=== PATIENT | male | born 1995 | race Caucasian/White ===

== ENCOUNTER 2017-05-21 17:41 | Emergency (ER) | payer SELFPAY | END 2017-05-21 18:42 | disposition home or self-care (01) | PROVIDERS: Emergency Provider Nurse Practitioner; Visit Provider Nurse Practitioner | DX: J32.9 Chronic sinusitis, unspecified (principal); Z87.891 Personal history of nicotine dependence; J45.909 Unspecified asthma, uncomplicated | CPT/HCPCS: 87804; 87880; 99201 ==

== ENCOUNTER 2020-11-04 16:37 | Emergency (ER) | payer BC, SELFPAY ==
[2020-11-04 16:45] VITALS: BP 119/81; PULSE 89; RESP 20; TEMP 36.6; O2SAT 100; BMI 23.7
[2020-11-04 17:05] VITALS: BP 000/00; PULSE 74; RESP 18; TEMP 36.6
--- NOTE | 2020-11-04 17:07 | HMH.EDUTC ---
[facility] [place] Disposition Clinical Impression: Bronchitis Sinusitis Qualifiers: Sinusitis location: unspecified location Chronicity: acute Recurrence: non-recurrent Qualified Code(s): J01.90 - Acute sinusitis, unspecified Disposition: Home, Self-Care Condition on Discharge: Good Instructions: DI for Sinusitis Additional Instructions: Drink plenty of fluids. Take tylenol or ibuprofen for pain or fever. Take the medications as directed. Follow up with your regular doctor. GO TO THE ER FOR ANY WORSENING SYMPTOMS Prescriptions: Pseudoephedrine HCl [Nasal Decongestant] 30 mg PO Q6HP PRN #30 tab PRN Reason: Congestion Transmission Status: Received by [facility] predniSONE [Prednisone 20mg Tab] 20 mg PO BID 4 Days #8 tab Transmission Status: Received by [facility] Benzonatate [Tessalon Perle 100mg Cap] 100 mg PO TIDP PRN #30 cap PRN Reason: Cough Transmission Status: Received by [facility] Azithromycin [Z-Monster 250mg Tab*] 250 mg PO UD DOSE PK #6 tab Transmission Status: Received by [facility] Referrals: Provider,Referral, [Primary Care Provider] - Forms: Work/School Release Time of Disposition: 17:15 Medical Decision Making - Medical Records Medical records reviewed: No: I reviewed the patient's medical records. - Olvin Inquiry Pt receiving controlled substance: No Vital Signs: 11/04/20 16:45 11/04/20 17:05 Temperature 98 F 98 F Temperature Source Oral Pulse Rate 74 Pulse Rate [Right] 89 Respiratory Rate 20 18 Blood Pressure 000/00 L Blood Pressure [Right Arm] 119/81 Blood Pressure Mean [Right Arm] 93 Blood Pressure Source [Right Arm] Automatic Cuff Blood Pressure Position [Right Arm] Sitting 02 Sat by Pulse Oximetry 100 Oxygen Delivery Method Room Air - Lab Data Lab results reviewed: Yes: I reviewed the patient's lab results. [facility] [place] HPI - General Stated complaint: cough,stuffie nose Time Seen by Provider: 11/04/20 17:07 Mode of Arrival: Ambulatory Source of Information: Patient Limitations: No Limitations Description of Symptoms (Recalled from Triage Doc. by RN): pt c/o nasal congestion, soa, and a productive cough with green sputum. HEENT Symptoms (Recalled from RN notes): Yes (nasal congestion) Resp Symptoms (Recalled from RN notes): Yes (soa and productive cough with green sputum) Skin Symptoms (Recalled from RN notes): No MS Symptoms (Recalled from RN notes): No Functional Status (Recalled from RN notes): na - History of Present Illness Provider Complaint: He states that he has had sinus congestion, cough, bilateral ear pain and chills for the past 2 days. He started feeling much worse this morning than he had been feeling. He denies any chest pain and shortness of breath. - Related Data Previous Rx's Medication Instructions Recorded Azithromycin [Z-Monster 250mg Tab*] 250 mg PO UD DOSE PK #6 tab 11/04/20 Benzonatate [Tessalon Perle 100mg 100 mg PO TIDP PRN #30 cap 11/04/20 Cap] Pseudoephedrine HCl [Nasal 30 mg PO Q6HP PRN #30 tab 11/04/20 Decongestant] predniSONE [Prednisone 20mg 20 mg PO BID 4 Days #8 tab 11/04/20 Tab] Allergies Allergy/AdvReac Type Severity Reaction Status Date / Time cimetidine [CIMETIDINE] Allergy Intermediate Verified 11/04/20 17:04 - Worker's Comp Is this a Worker's Comp case?: No [facility] History - Hepatitis A Screen Drug use history?: No High risk sexual behaviors?: No History of sexually transmitted infection?: No Currently employed?: No Childcare worker?: No Do you have indoor plumbing?: Yes Do you have electricity?: Yes Attestation statement:: This patient has been screened for Hepatitis A risk factors. I have reviewed the patient's past medical history: Yes Medical History: Denies:: Diabetes Mellitus Type 1, Diabetes Mellitus Type 2 - Social History Smoking Status: Current every day smoker Tobacco Type: e-cigarettes # Packs/Day (cigarettes): 1 Alcoho
== END 2020-11-04 17:18 | disposition home or self-care (01) ==
PROVIDERS: Emergency Provider Nurse Practitioner Family
DX: J01.90 Acute sinusitis, unspecified (principal); Z20.822 Contact with and (suspected) exposure to COVID-19; F17.290 Nicotine dependence, other tobacco product, uncomplicated
CPT/HCPCS: 99202; G0463; U0003

== ENCOUNTER 2021-01-27 21:48 | Emergency (ER) | payer BC, SELFPAY ==
[2021-01-27 21:49] VITALS: BP 125/85; PULSE 65; RESP 16; TEMP 36.7; O2SAT 100; BMI 23.7
[2021-01-27 23:45] LABS: Basophils # 0.1 K/mm3 (0-0.2); Basophils % 0.8 % (0.1-2.0); Eosinophils # 0.1 K/mm3 (0.0-0.4); Eosinophils % 1.2 % (0.1-12.0); Hematocrit 44.1 % (42.0-52.0); Hemoglobin 14.8 g/dL (14.1-18.0); Lymphocytes # 2.6 K/mm3 (0.7-4.5); Lymphocytes % 37.1 % (10-50); Mean Corpuscular HGB Conc 33.6 g/dL (31.8-35.4); Mean Corpuscular Hemoglobin 31.4 pg (27.0-31.2); Mean Corpuscular Volume 93.5 fl (80-94); Mean Platelet Volume 8.8 fl (7.4-10.4); Monocytes # 0.3 K/mm3 (0.1-1.0); Monocytes % 3.9 % (1.7-9.3); Platelet Count 268 K/mm3 (142-424); Red Blood Count 4.71 M/mm3 (4.60-6.20); Red Cell Distribution Width 12.7 % (11.5-17.5)
[2021-01-27 23:53] LABS: Alanine Aminotransferase 27 U/L (12-78); Albumin/Globulin Ratio 1.8 (1.1-1.8); Alkaline Phosphatase 93 U/L (38-126); Anion Gap 15.1 mEq/L (5-15); Aspartate Amino Transferase 32 U/L (17-59); Bilirubin,Total 0.7 mg/dl (0.2-1.3); Blood Urea Nitrogen 11 mg/dl (9-20); Calcium 9.8 mg/dl (8.4-10.2); Carbon Dioxide 28 mmol/L (22.0-30.0); Chloride 101 mmol/L (98-107); Creatinine Clearance Estimated 181 mL/min (50-200); Estimated Glomerular Filt Rate 137 ml/min (>60); GFR (African American) 166 ML/MIN (>60); Globulin 2.8 g/dL (1.3-3.2); Glucose 98 mg/dl (74-100); Lipase 17 U/L (23-300); Potassium 4.1 mmoL/L (3.5-5.1); Sodium 140 mmol/L (136-145); Total Protein,Serum 7.8 g/dl (6.3-8.2)
--- NOTE | 2021-01-28 01:59 | HMH.EDGENADL ---
ED Disposition Clinical Impression: Gastroenteritis Disposition: Home, Self-Care Condition on Discharge: Fair Prescriptions: Famotidine [Acid Controller] 20 mg PO DAILY 30 Days #30 tab Transmission Status: Received by [facility] Referrals: Provider,MD Gus [Primary Care Provider] - Robinson Baez MD [Staff Physician] - Time of Disposition: 02:01 - Critical Care Critical Care Time: No Attestation: On 01/27/21, the high probability of a clinically significant, sudden or life threatening deterioration of the following system(s) required my full and direct attention, intervention and personal management. The time I documented below is in addition to time spent performing reported procedures but includes the following listed in this critical care notation. Medical Decision Making - Medical Records Medical records reviewed: Yes: I reviewed the patient's medical records. - Olvin Inquiry Pt receiving controlled substance: No Vital Signs: 01/27/21 21:49 Temperature 98.0 F Temperature Source Oral Pulse Rate [Right Radial] 65 Respiratory Rate 16 Blood Pressure [Right Arm] 125/85 Blood Pressure Mean [Right Arm] 98 Blood Pressure Source [Right Arm] Automatic Cuff Blood Pressure Position [Right Arm] Sitting 02 Sat by Pulse Oximetry 100 Oxygen Delivery Method Room Air - Lab Data Lab Results 01/27/21 23:38: WBC 7.0, RBC 4.71, Hgb 14.8, Hct 44.1, MCV 93.5, MCH 31.4 H, MCHC 33.6, RDW 12.7, Plt Count 268, MPV 8.8, Neut % (Auto) 57.0, Lymph % (Auto) 37.1, O'Brien % (Auto) 3.9, Eos % (Auto) 1.2, Baso % (Auto) 0.8, Neut # (Auto) 4.0, Lymph # (Auto) 2.6, O'Brien # (Auto) 0.3, Eos # (Auto) 0.1, Baso # (Auto) 0.1 01/27/21 23:38: Sodium 140, Potassium 4.1, Chloride 101, Carbon Dioxide 28, Anion Gap 15.1 H, BUN 11, Creatinine 0.70, Estimated Creat Clear 181, Estimated GFR 137, Est GFR ( Amer) 166, Glucose 98, Calcium 9.8, Total Bilirubin 0.7, AST 32, ALT 27, Alkaline Phosphatase 93, Total Protein 7.8, Albumin 5.0, Globulin 2.8, Albumin/Globulin Ratio 1.8, Lipase 17 L Result diagrams: 01/27/21 23:38 01/27/21 23:38 Orders (Tests/Meds): ED MEDICATIONS Discontinued Medications Generic Name Dose Route Start Last Admin Trade Name Daniela PRN Reason Stop Dose Admin Belladonna Alkaloids 60 ml 01/28/21 00:01 01/28/21 00:05 Gi Cocktail 60ml Udc PO 01/28/21 00:02 60 ml ONCE ONE Administration Medical Decision Narrative: 25-year-old male presenting to the emergency department with chief complaint of abdominal pain. Differential diagnosis includes gastritis, cholelithiasis, cholecystitis, pancreatitis, among others. Given a CBC, CMP, lipase were ordered. Patient was given a GI cocktail with minimal relief of symptoms. Patient was hemodynamically stable throughout the emergency department stay, physical exam was not consistent with these etiology, nor were labs concerning for elevated bilirubin, acute liver injury, or pancreatitis. Reassessment patient was still having some discomfort, stated that the GI cocktail had provided alleviation but it only lasted for about half an hour. Patient was given Toradol and Reglan for the alleviation of his symptoms. He is given referral to primary care doctor as he does not have one instructed to take famotidine in the interim. Precautions regarding worsening of pain, new symptoms were also given. Patient discharged in stable condition. General Adult HPI - General Chief complaint: Abdominal Pain Stated complaint: burning in stomach Time Seen by Provider: 01/27/21 22:30 Mode of Arrival: Ambulatory Limitations: No Limitations Description of Symptoms (Recalled from ER Triage Doc. by RN): Pt reports intermittent burning in his mid abdomen for over a year but it has been constant since 5pm. pt denies fevers. Denies abd pain. Denies N/V/D. - History of Present Illness HPI narrative: Emergency department with burning pain in his stomach. He sta
[2021-01-28 02:00] VITALS: BP 116/82; PULSE 83; RESP 16; TEMP 36.7; O2SAT 99
== END 2021-01-28 02:08 | disposition home or self-care (01) ==
PROVIDERS: Emergency Provider Emergency Medicine
DX: K52.9 Noninfective gastroenteritis and colitis, unspecified (principal); Z88.8 Allergy status to other drugs, medicaments and biological substances; Z72.0 Tobacco use
CPT/HCPCS: 80053; 83690; 85025; 99282

== ENCOUNTER 2021-02-25 17:40 | Emergency (ER) | payer BC, SELFPAY ==
[2021-02-25 19:00] VITALS: BP 147/80; PULSE 81; RESP 18; TEMP 36.8; O2SAT 100; BMI 23.7
[2021-02-25 19:26] LABS: UTC Strep Screen (Rapid) Positive (Negative)
--- NOTE | 2021-02-25 19:32 | HMH.EDUTC ---
[facility] [place] Clinical Impression: Strep throat Disposition: Home, Self-Care Condition on Discharge: Good Instructions: Strep Throat, DI for Strep Throat Additional Instructions: Drink plenty of fluids. Take tylenol or ibuprofen for pain or fever. Take the medications as directed. Follow up with your regular doctor. GO TO THE ER FOR ANY WORSENING SYMPTOMS Throw your tooth brush away and get a new one. Quarantine until you know the results of your covid-19 test. If it is positive, the health department should call you and give you further instructions about your length of Quarantine and other things. Notify your school or workplace of your results and follow their instructions regarding return to work/school. Prescriptions: Brompheniramine/Pseudoephed/Dm [Bromfed Dm Cough Syrup] 5 ml PO Q6HP PRN #240 ml PRN Reason: Cough Transmission Status: Received by [email or web address] Amoxicillin/Potassium Clav [Augmentin 875-125 Tablet] 1 tab PO Q12H 10 Days #20 tab Transmission Status: Received by [email or web address] predniSONE [Deltasone 10mg tablet] 10 mg PO BID 3 Days #6 tab Transmission Status: Received by [email or web address] Referrals: Provider,Referral, [Primary Care Provider] - Forms: Work/School Release Time of Disposition: 19:39 Medical Decision Making - Medical Records Medical records reviewed: No: I reviewed the patient's medical records. - Olvin Inquiry Pt receiving controlled substance: No Vital Signs: 02/25/21 19:00 02/25/21 19:41 Temperature 98.2 F 98.2 F Temperature Source Oral Pulse Rate 81 Pulse Rate [Right Brachial] 81 Respiratory Rate 18 18 Blood Pressure 147/80 H Blood Pressure [Right Arm] 147/80 H Blood Pressure Mean [Right Arm] 102 Blood Pressure Source [Right Arm] Automatic Cuff Blood Pressure Position [Right Arm] Sitting 02 Sat by Pulse Oximetry 100 Oxygen Delivery Method Room Air - Lab Data Lab results reviewed: Yes: I reviewed the patient's lab results. Lab Results 02/25/21 19:18: Strep Scn Rapid [facility] Positive A Orders (Tests/Meds): ORDERS Category Date Time Status Covid-19 Nasal PCR ([facility]) Routine Lab 02/25/21 19:08 Received [facility] [place] HPI - General Stated complaint: covid test Time Seen by Provider: 02/25/21 19:32 Mode of Arrival: Ambulatory Source of Information: Patient Limitations: No Limitations Description of Symptoms (Recalled from Triage Doc. by RN): PATIENT C/O HEADACHE, SORE THROAT, COUGH, CONGESTION AND NAUSEA. REQUESTING COVID TEST HEENT Symptoms (Recalled from RN notes): Yes Resp Symptoms (Recalled from RN notes): Yes Skin Symptoms (Recalled from RN notes): No MS Symptoms (Recalled from RN notes): No Functional Status (Recalled from RN notes): WNL - History of Present Illness Provider Complaint: He states that he has had sore throat, runny nose, chills and feeling bad for the past 2 days. - Related Data Previous Rx's Medication Instructions Recorded Amoxicillin/Potassium Clav 1 tab PO Q12H 10 Days #20 tab 02/25/21 [Augmentin 875-125 Tablet] Brompheniramine/Pseudoephed/Dm 5 ml PO Q6HP PRN #240 ml 02/25/21 [Bromfed Dm Cough Syrup] predniSONE [Deltasone 10mg tablet] 10 mg PO BID 3 Days #6 tab 02/25/21 Allergies Allergy/AdvReac Type Severity Reaction Status Date / Time cimetidine [CIMETIDINE] Allergy Intermediate Verified 11/04/20 17:04 - Worker's Comp Is this a Worker's Comp case?: No [facility] History - Hepatitis A Screen Drug use history?: No High risk sexual behaviors?: No History of sexually transmitted infection?: No Currently employed?: No Childcare worker?: No Do you have indoor plumbing?: Yes Do you have electricity?: Yes Attestation statement:: This patient has been screened for Hepatitis A risk factors. I have reviewed the patient's past medical history: Yes Medical History: Denies:: Diabetes Mellitus Type 1, Diabetes Mellitus Type 2 - Social History S
[2021-02-25 19:41] VITALS: BP 147/80; PULSE 81; RESP 18; TEMP 36.8; O2SAT 100
--- NOTE | 2021-02-26 17:22 | PC.NURSE ---
informed patient that he is positive
== END 2021-02-25 19:45 | disposition home or self-care (01) ==
PROVIDERS: Emergency Provider Nurse Practitioner Family
DX: J02.0 Streptococcal pharyngitis (principal); Z20.822 Contact with and (suspected) exposure to COVID-19
CPT/HCPCS: 87880; 99203; C9803; G0463; U0003; U0005

== ENCOUNTER 2021-03-10 16:56 | Emergency (ER) | payer BC, SELFPAY ==
[2021-03-10 16:58] VITALS: BP 136/79; PULSE 84; RESP 20; TEMP 36.6; O2SAT 100; BMI 23.7
--- NOTE | 2021-03-10 17:08 | XR_ITS ---
PROCEDURE INFORMATION: Exam: XR Chest Exam date and time: 03/10/2021 5:08 PM Age: 25 years old Clinical indication: Shortness of breath; Additional info: SOA TECHNIQUE: Imaging protocol: XR of the chest. Views: 2 views. Total images: 2 COMPARISON: CR XR RIBS LT MIN 3V W CXR1V 06/15/2019 10:51 PM FINDINGS: Lungs: Question mild generalized hyperexpansion and diaphragmatic flattening which may relate to strong inspiratory effort or possibly mild asthma/bronchiolitis. Pulmonary vasculature grossly normal. No gross pulmonary infiltrates or edema pattern. Bilateral granulomatous calcifications unchanged. Pleural spaces: No pleural effusion. No pneumothorax. Heart/Mediastinum: Heart size normal. No tracheal/mediastinal shift. Bones/joints: No acute osseous abnormalities are identified. IMPRESSION: Question mild generalized hyperexpansion and diaphragmatic flattening which may relate to strong inspiratory effort or possibly mild asthma/bronchiolitis. No gross pulmonary infiltrates or edema pattern.
--- NOTE | 2021-03-10 17:09 | HMH.EDUTC ---
[facility] [place] Disposition Clinical Impression: COVID-19 Disposition: Home, Self-Care Condition on Discharge: Good Instructions: DI for COVID-19 (Suspected or Confirmed ), Preventing the Spread of Coronavirus Discharge Instructions Additional Instructions: Drink plenty of fluids. Take tylenol or ibuprofen for pain or fever. Take the medications as directed. Follow up with your regular doctor. GO TO THE ER FOR ANY WORSENING SYMPTOMS Prescriptions: Albuterol Sulfate [Albuterol Sulfate Hfa] 2 puffs IH Q6HP PRN 30 Days #1 each PRN Reason: Shortness Of Breath Transmission Status: Received by [facility] dexAMETHasone [Decadron] 6 mg PO DAILY 6 Days #6 tab Transmission Status: Received by [facility] Referrals: Provider,Referral, [Primary Care Provider] - Forms: Work/School Release Time of Disposition: 17:32 Medical Decision Making - Medical Records Medical records reviewed: No: I reviewed the patient's medical records. - Olvin Inquiry Pt receiving controlled substance: No Vital Signs: 03/10/21 16:58 03/10/21 17:17 Temperature 98 F 98.3 F Temperature Source Oral Pulse Rate 84 Pulse Rate [Left] 84 Respiratory Rate 20 18 Blood Pressure 136/79 Blood Pressure [Right Arm] 136/79 Blood Pressure Mean [Right Arm] 98 02 Sat by Pulse Oximetry 100 [facility] [place] HPI - General Stated complaint: covid test Time Seen by Provider: 03/10/21 17:09 - History of Present Illness Provider Complaint: He states that he has had covid-19 and his quarentine time is up. He was feeling better, but over the past 2 days he has had worsening fatigue, a cough and he has started to have chest pain with deep breathing. He denies any known fever. - Related Data Previous Rx's Medication Instructions Recorded Amoxicillin/Potassium Clav 1 tab PO Q12H 10 Days #20 tab 02/25/21 [Augmentin 875-125 Tablet] Brompheniramine/Pseudoephed/Dm 5 ml PO Q6HP PRN #240 ml 02/25/21 [Bromfed Dm Cough Syrup] predniSONE [Deltasone 10mg tablet] 10 mg PO BID 3 Days #6 tab 02/25/21 Albuterol Sulfate [Albuterol 2 puffs IH Q6HP PRN 30 Days #1 each 03/10/21 Sulfate Hfa] dexAMETHasone [Decadron] 6 mg PO DAILY 6 Days #6 tab 03/10/21 Allergies Allergy/AdvReac Type Severity Reaction Status Date / Time cimetidine [CIMETIDINE] Allergy Intermediate Verified 11/04/20 17:04 [facility] History - Hepatitis A Screen Attestation statement:: This patient has been screened for Hepatitis A risk factors. I have reviewed the patient's past medical history: Yes Medical History: Denies:: Diabetes Mellitus Type 1, Diabetes Mellitus Type 2 - Social History Smoking Status: Current every day smoker Tobacco Type: e-cigarettes # Packs/Day (cigarettes): 1 Alcohol Intake: never Occupational Status: employed ROS Obtained: Yes All systems reviewed & no additional complaints - Constitutional Constitutional: Reports chills, Reports fever(s), Reports poor appetite, Reports malaise - Eyes Eyes: Denies eye discharge - ENT Ears, Nose, Mouth, and Throat: Denies dizziness, Denies otalgia, Denies sore throat - Cardiovascular Cardiovascular: Denies chest pain - Respiratory Respiratory: Reports chest congestion, Reports cough, Denies dyspnea, Denies stridor, Reports wheezing - Gastrointestinal Gastrointestingal: Reports: nausea, vomiting. Denies: abdominal pain, diarrhea - Musculoskeletal Musculoskeletal: Denies joint pain, Denies back pain, Denies neck pain - Integumentary/Breasts Skin/Breast: Denies rash Physical Exam - General General appearance: alert, in no apparent distress - Head Head exam: atraumatic, normocephalic, normal inspection - Eye Eye exam: Present: normal appearance, PERRL, EOMI - ENT ENT exam: Present: normal exam, normal oropharynx, mucous membranes moist, TM's normal bilaterally, normal external ear exam - Neck Neck exam: Present: normal inspection, full ROM, trachea midline. Absent:
[2021-03-10 17:17] VITALS: BP 136/79; PULSE 84; RESP 18; TEMP 36.8
== END 2021-03-10 17:35 | disposition home or self-care (01) ==
PROVIDERS: Emergency Provider Nurse Practitioner Family
DX: R53.83 Other fatigue (principal); R05.9 Cough, unspecified; R07.9 Chest pain, unspecified; Z72.0 Tobacco use
CPT/HCPCS: 71046; 99202; C9803; G0463; U0003; U0005

== ENCOUNTER 2022-02-02 21:48 | Emergency (ER) | payer BC, SELFPAY ==
[2022-02-02 21:49] VITALS: BP 135/88; PULSE 90; RESP 16; TEMP 36.9; O2SAT 100; BMI 23.7
--- NOTE | 2022-02-02 22:32 | XR_ITS ---
PROCEDURE INFORMATION: Exam: XR Right Knee Exam date and time: 02/02/2022 10:34 PM Age: 26 years old Clinical indication: Pain and injury or trauma; Other: Twisted knee; Sprain or strain; Patella or knee; Right; Additional info: Injury twisted RT knee heard a pop now in pain TECHNIQUE: Imaging protocol: Radiologic exam of the Right knee. Views: 3 views. COMPARISON: No relevant prior studies available. FINDINGS: Bones/joints: Normal. Soft tissues: Normal. IMPRESSION: No acute findings.
--- NOTE | 2022-02-03 00:35 | HMH.EDLOEX ---
Discharge Plan Disposition Patient Disposition: Home, Self-Care Prescriptions Prescriptions: No Action prednisone 10 MG tablet 10 mg PO BID 3 Days Qty: 6 0RF gecacuytvnzruws-zlbjwoxag-CB 118 ML syrup 5 ml PO Q6HP PRN (Reason: Cough) Qty: 240 0RF amoxicillin-pot clavulanate 1 EACH tablet 1 tab PO Q12H 10 Days Qty: 20 0RF dexamethasone 6 MG tablet 6 mg PO DAILY 6 Days Qty: 6 0RF albuterol sulfate 8.5 GM HFA aerosol inhaler 2 puffs IH Q6HP PRN (Reason: Shortness Of Breath) 30 Days Qty: 1 5RF Referrals Follow up/Referrals: Provider,Referral, MD [Primary Care Provider] - See instructions Clinical Impressions Clinical Impression: Right knee injury Instructions Patient Instructions: DI for Knee Pain Discharge ED Provider: Esa Chaparro Lower Extremity Injury HPI General Chief Complaint: Extremity Injury, Lower Stated Complaint: R knee popped and painful Time Seen by Provider: 02/03/22 00:35 Mode of Arrival: Ambulatory Source of Information: Patient and Medical Record Limitations: No Limitations Description of Symptoms (Recalled from ER Triage Doc. by RN): pt states he was picking up his child and there was a pop in his knee and now there is a knot on the back of his knee and he feels like its not stable there is a brittle feeling and he is unable to extend it fully. History of Present Illness HPI Narrative: acute injury rt knee as he was squatting and has post knee pain complaint: knee injury Onset (ago): hour(s) Injury: Right: knee Type of Injury: other (sqatting ) Place: home Severity: moderate Exacerbating factors: weight bearing, movement and palpation Context: other (squatting ) Associated symptoms: snap/pop sensation and able to partially bear weight Other symptoms: none Related Data Previous Rx's Medication Instructions Recorded amoxicillin 875 mg-potassium 1 tab PO Q12H 10 days #20 tabs 02/25/21 clavulanate 125 mg tablet dhnyehfizxsawpl-jjqyidydztlvuym-VR 5 ml PO Q6HP PRN Cough #240 mL 02/25/21 2 mg-30 mg-10 mg/5 mL oral syrup prednisone 10 mg tablet 10 mg PO BID 3 days #6 tabs 02/25/21 albuterol sulfate 90 mcg/actuation 2 puffs IH Q6HP PRN Shortness Of 03/10/21 aerosol inhaler Breath 30 days #1 ea dexamethasone 6 mg tablet 6 mg PO DAILY 6 days #6 tabs 03/10/21 Allergies Allergy/AdvReac Type Severity Reaction Status Date / Time cimetidine [CIMETIDINE] Allergy Intermediate Verified 11/04/20 17:04 PFSH PFSH Social History Smoking Status: Current every day smoker tobacco type: e-cigarettes alcohol intake: never current occupational status: employed Travel in the last 8 weeks: None ROS Obtained: Yes All systems reviewed & no additional complaints except as documented Physical Exam General General appearance: alert Head Head exam: normocephalic Eye Eye exam: Present PERRL and EOMI ENT ENT exam: Present mucous membranes moist Neck Neck exam: Present trachea midline Respiratory Respiratory exam: Absent respiratory distress Cardiovascular Cardiovascular exam: Present regular rate Abdominal Exam Abdominal exam: Present soft Expanded Lower Extremity Exam Right: Knee exam: Present tenderness; Absent full ROM or erythema Neurovascular/Tendon exam: Absent pulse deficit, motor deficit or sensory deficit Gait: not tested/not observed Neurological Exam Neurological exam: Present alert, oriented X3 and CN II-XII intact Skin Skin exam: Present intact Medical Decision Making Medical Records Medical records reviewed: Yes I reviewed the patient's medical records. Olvin Inquiry Pt receiving controlled substance: No Vital Signs: 02/02/22 21:49 Temperature 98.4 F Temperature Source Oral Pulse Rate [Left] 90 Respiratory Rate 16 Blood Pressure [Right Arm] 135/88 Blood Pressure Mean [Right Arm] 103 02 Sat by Pulse Oximetry 100 Oxygen Delivery Method Room Air Lab Data Lab results reviewed: Yes I reviewed the byron
[2022-02-03 01:14] VITALS: BP 118/62; PULSE 80; RESP 16; TEMP 36.6; O2SAT 99
== END 2022-02-03 01:14 | disposition home or self-care (01) ==
PROVIDERS: Emergency Provider Emergency Medicine
DX: S89.91XA Unspecified injury of right lower leg, initial encounter (principal); Y93.89 Activity, other specified; Y92.009 Unspecified place in unspecified non-institutional (private) residence as the place of occurrence of the external cause
CPT/HCPCS: 73562; 99283

== ENCOUNTER 2024-10-25 20:14 | Inpatient (IN) | payer BC, SELFPAY ==
--- NOTE | 2024-10-25 20:11 | ECG_ITS ---
APPROVED REPORT Exam: Resting ECG HR:90 bpm ECG Measurements Heart Rate 90 AXES KS 136 P 75 QRSd 106 QRS 88 QT 352 T 72 QTc 400 Conclusion SINUS RHYTHM NORMAL ECG No STEMI Electronically signed by : DANIAL MOODY, 10/26/2024 20:05:23
[2024-10-25 20:16] VITALS: BP 116/52; PULSE 60; RESP 16; TEMP 36.6; O2SAT 98; BMI 26.7
--- NOTE | 2024-10-25 20:22 | XR_ITS ---
PROCEDURE INFORMATION: Exam: XR Chest Exam date and time: 10/25/2024 8:56 PM Age: 29 years old Clinical indication: Pain; Radiating and left-sided; Additional info: Left-sided chest pain TECHNIQUE: Imaging protocol: Radiologic exam of the chest. Views: 2 views. COMPARISON: CR XR CHEST 2V 03/10/2021 5:04 PM FINDINGS: Lungs: Unremarkable. No consolidation. Pleural spaces: Unremarkable. No pleural effusion. No pneumothorax. Heart/Mediastinum: Unremarkable. No cardiomegaly. Bones/joints: Unremarkable. IMPRESSION: No acute findings.
[2024-10-25] MEDS: ACETAMINOPHEN 500MG TAB 1000 MG PO (20:27)
[2024-10-25 20:28] LABS: Basophils % 0.4 % (0.1-2.0); Eosinophils # 0.1 Kmm3 (0.0-0.4); Eosinophils % 0.7 % (0.1-12.0); Hemoglobin 15.6 g/dL (14.1-18.0); Immature Granulocytes # 0.06 10^3uL; Immature Granulocytes % 0.7 %; Lymphocytes # 2.5 K/mm3 (0.7-4.5); Lymphocytes % 27.5 % (10-50); Mean Corpuscular HGB Conc 34.7 g/dL (31.8-35.4); Mean Corpuscular Hemoglobin 31.2 pg (27.0-31.2); Monocytes # 1.2 K/mm3 (0.1-1.0); Monocytes % 13.5 % (1.7-9.3); Neutrophils # 5.2 K/mm3 (1.8-7.8); Neutrophils % 57.2 % (37.0-80.0); Nucleated Red Blood Cells # 0 10^3/uL; Nucleated Red Blood Cells % 0 %; Platelet Count 265 K/mm3 (142-424); Red Cell Distribution Width 12.3 % (11.5-17.5); Red Cell Distribution Width-SD 40.3 fL; White Blood Count 9.1 K/mm3 (4.8-10.8)
[2024-10-25] MEDS: KETOROLAC 30MG/ML VIAL 15 MG IV (20:28)
--- NOTE | 2024-10-25 20:33 | HMH.EDGENADL ---
Discharge Plan Disposition Patient Disposition: Admitted Condition: Good Clinical Impressions Clinical Impression: Spontaneous pneumothorax Discharge ED Provider: Myra Hassan General Adult HPI <LINDA Concepcion - Last Filed: 10/25/24 21:24> General Chief complaint: Chest Pain Stated complaint: chest pain Time Seen by Provider: 10/25/24 20:17 Mode of Arrival: Ambulatory Source of Information: Patient Description of Symptoms (Recalled from ER Triage Doc. by RN): pt presents with c/o left sided chest pain that began last night while he was sitting. Pt reports pain began in anterior chest and radiated through to his back with pain going to his left arm.Pt reports associtaed dry cough that has progressed to productive. Pt reports pain with movement and coughing. History of Present Illness HPI narrative: Presents for evaluation of left chest pain. Patient states that he had sudden onset last night of left-sided chest pain as he was sitting down to play video games. Pain has persisted since last night waking him up every hour as he tried to sleep. He states the pain radiates to his left shoulder and down his left arm. He has no known cardiovascular history is on no home medications and no chronic medical conditions. He does vape daily. He denies fever chills hemoptysis hematochezia melena nausea vomiting diarrhea. Related Data Previous Rx's ?Medication ?Instructions ?Recorded amoxicillin 875 mg-potassium 1 tab PO Q12H 10 days #20 tabs 02/25/21 clavulanate 125 mg tablet wnafhjbjimddfue-tgglvwckrxccqzs-YW 5 ml PO Q6HP PRN Cough #240 mL 02/25/21 2 mg-30 mg-10 mg/5 mL oral syrup prednisone 10 mg tablet 10 mg PO BID 3 days #6 tabs 02/25/21 albuterol sulfate 90 mcg/actuation 2 puffs IH Q6HP PRN Shortness Of 03/10/21 aerosol inhaler Breath 30 days #1 ea dexamethasone 6 mg tablet 6 mg PO DAILY 6 days #6 tabs 03/10/21 Allergies Allergy/AdvReac Type Severity Reaction Status Date / Time cimetidine (CIMETIDINE) Allergy Intermediate Verified 11/04/20 17:04 PFSH <LINDA Concepcion - Last Filed: 10/25/24 21:24> PFS Disclaimer: The information contained in this section may have been updated after the patient was seen, as this information can be updated by other users. Social History Smoking Status: Current every day smoker tobacco type: e-cigarettes alcohol intake: never current occupational status: employed Travel in the last 8 weeks?: None Have you lived/traveled outside US in past 30 days?: No Contact w/someone who lives/traveled outside US past 30 days?: No Exposure to someone with infectious disease in past 14 days?: No Do you have a fever (greater than 100.4 F or 38 C)?: No Have you tested positive for COVID-19?: No Exposed to someone with COVID-19 in past 14 days?: No Do you have a sore throat?: No Do you have a cough?: No Do you have any weakness?: No Do you have any diarrhea?: No Are you experiencing any unusual bleeding?: No Do you have any muscle aches/pain?: No Do you have any abdominal pain?: No Are you experiencing loss of taste or smell?: No Other Medical History Have you received the Flu Vaccine for this season: No Have you received the Pneumonia Vaccine: No <LINDA Concepcion - Last Filed: 10/25/24 21:24> ROS Obtained: Yes Systems reviewed as appropriate & no additional complaints except as documented Physical Exam <LINDA Concepcion - Last Filed: 10/25/24 21:24> General General appearance: alert Respiratory Respiratory exam: Present normal lung sounds bilaterally Cardiovascular Cardiovascular exam: Present regular rate Neurological Exam Neurological exam: Present alert and oriented X3 Medical Decision Making <LINDA Concepcion - Last Filed: 10/25/24 21:24> Medical Records Medical records reviewed: Yes I reviewed the patient's medical records. Screening: Per USPSTF and CDC recommendations, given the prevalence of disease in our region, it is our hospital?s policy to screen for HIV and viral Hepatitis for all patients aged 18 and over and those with ongoing risk factors. Olvin Inquiry Pt receiving controlled substance: No Vital Signs: 10/25/24 20:16 10/25/24 21:00 10/25/24 21:30 Temperature 98 F Temperature Source Oral Pulse Rate 92 H 91 H Pulse Rate [Radial] 60 Respiratory Rate 16 17 12 Blood Pressure 125/80 133/91 H Blood Pressure [Right Arm] 116/52 L Blood Pressure Mean [Right Arm] 73 Blood Pressure Position [Right Arm] Sitting 02 Sat by Pulse Oximetry 98 96 97 Oxygen Delivery Method Room Air 10/25/24 21:48 Temperature Temperature Source Pulse Rate 85 Pulse Rate [Radial] Respiratory Rate 14 Blood Pressure 122/87 Blood Pressure [Right Arm] Blood Pressure Mean [Right Arm] Blood Pressure Position [Right Arm] 02 Sat by Pulse Oximetry 95 Oxygen Delivery Method Lab Data Lab results reviewed: Yes I reviewed the patient's lab results. Lab Results 10/25/24 20:16: WBC 9.1, RBC 5.00, Hgb 15.6, Hct 45.0, MCV 90.0, MCH 31.2, MCHC 34.7, RDW 12.3, Plt Count 265, MPV 11.0 H, Neut % (Auto) 57.2, Lymph % (Auto) 27.5, [place] % (Auto) 13.5 H, Eos % (Auto) 0.7, Baso % (Auto) 0.4, Neut # (Auto) 5.2, Lymph # (Auto) 2.5, [place] # (Auto) 1.2 H, Eos # (Auto) 0.1, Baso # (Auto) 0.0, D-Dimer 0.47, Sodium 143, Potassium 3.8, Chloride 107, Carbon Dioxide 28, Anion Gap 11.8, BUN 11, Creatinine 0.80, Estimated Creat Clear 172, Estimated GFR 114, Est GFR ( Amer) 138, Glucose 92, Calcium 9.5, Total Bilirubin 0.8, AST 30, ALT 24, Alkaline Phosphatase 109, Troponin I < 0.01, NT-Pro-B Natriuret Pep < 20.0, Total Protein 7.3, Albumin 4.9, Globulin 2.4, Albumin/Globulin Ratio 2.0 H, Lipase 22 L 10/25/24 20:16 10/25/24 20:16 Orders (Tests/Meds): ED MEDICATIONS Generic Name Dose Route Start Last Admin Trade Name Freq PRN Reason Stop Dose Admin Acetaminophen 650 mg 10/25/24 21:34 Acetaminophen 325mg Tab PO 11/24/24 21:33 Q4HP PRN Fever or Mild Pain (1-3) Hydrocodone Bitart/Acetaminophen 1 tab 10/25/24 21:34 Hydrocodone/Apap 5/325 Mg Tablet PO 11/24/24 21:33 Q4HP PRN Mild to Moderate Pain (1-6) Ibuprofen 400 mg 10/25/24 21:34 Ibuprofen 400 Mg Tablet PO 11/24/24 21:33 Q6HP PRN Mild Pain (1-3) Nicotine 21 mg 10/25/24 21:34 Nicotine 21mg/24hr Patch TD 11/24/24 21:33 DAILYP PRN Nicotine Cravings Discontinued Medications Generic Name Dose Route Start Last Admin Trade Name Freq PRN Reason Stop Dose Admin Acetaminophen 1,000 mg 10/25/24 20:22 10/25/24 20:27 Acetaminophen 500mg Tab PO 10/25/24 20:23 1,000 mg ONCE ONE Administration Ketorolac Tromethamine 15 mg 10/25/24 20:22 10/25/24 20:28 Ketorolac 30mg/Ml Vial IV 10/25/24 20:23 15 mg ONCE ONE Administration ORDERS Category Date Time Status CT chest wo con Stat Cat Scan 10/25/24 21:27 Completed Chest XR 2 view (NOT portable) [XR chest 2V] Stat Exams 10/25/24 20:22 Completed BNP [NT Pro Brain Natriuretic Pep.] Stat Lab 10/25/24 20:16 Completed CBC w/Auto Diff [Complete Blood Count Auto Diff] Stat Lab 10/25/24 20:16 Completed CMP [Comprehensive Metabolic Panel] Stat Lab 10/25/24 20:16 Completed Complete Blood Count Auto Diff AMLAB Lab 10/26/24 06:00 Ordered Comprehensive Metabolic Panel AMLAB Lab 10/26/24 06:00 Ordered D-Dimer Stat Lab 10/25/24 20:16 Completed Lipase Stat Lab 10/25/24 20:16 Completed Phosphorous AMLAB Lab 10/26/24 06:00 Ordered Trop I [Troponin I] Stat Lab 10/25/24 20:16 Completed Troponin I Q3H Lab 10/25/24 23:30 Ordered Troponin I Q3H Lab 10/26/24 02:30 Ordered HEART Score History (anamnesis): Slightly suspicious ECG: Normal Age: <45 years Risk factors: No known risk factors Troponin: </= normal limit HEART Score: 0 Medical Decision Narrative: In summary patient is a 29-year-old male who presents to the emergency department for evaluation of acute left-sided chest pain. Patient is hemodynamically stable with a blood pressure 116/52 pulse 60 respiratory rate 16 temperature is 98 satting at 98% on room air upon arrival, afebrile at 98. Physical exam is remarkable for no reproducible pain on physical exam and breath sounds are clear in the right lung boothe but diminished in the upper lung boothe on the left without adventitious sounds or increased work of breathing or accessory muscle use. Abdomen is soft nontender no rebound or guarding no rigidity. Bowel sounds normal active.. Differential diagnosis includes pneumothorax versus PE versus ACS versus pneumonia etc. Initial workup will be conducted with hematologic labs plain film chest x-ray twelve-lead EKG. Initial interventions include Tylenol Toradol Zofran. Initial workup reviewed by me and his hematologic labs are unremarkable including a normal D-dimer normal white count undetectable troponin NT proBNP in my informal interpretation of his plain film chest x-ray shows a small spontaneous pneumothorax in the left. Given this Dr. Hassan was able to place a chest tube. I then had an interactive discussion with hospital medicine regarding patient presentation SNYDER management and he will be admitted for further evaluation and care. <Myra Hassan, DO - Last Filed: 10/25/24 23:16> Vital Signs: 10/25/24 20:16 10/25/24 21:00 10/25/24 21:30 Temperature 98 F Temperature Source Oral Pulse Rate 92 H 91 H Pulse Rate [Radial] 60 Respiratory Rate 16 17 12 Blood Pressure 125/80 133/91 H Blood Pressure [Right Arm] 116/52 L Blood Pressure Mean [Right Arm] 73 Blood Pressure Position [Right Arm] Sitting 02 Sat by Pulse Oximetry 98 96 97 Oxygen Delivery Method Room Air 10/25/24 21:48 Temperature Temperature Source Pulse Rate 85 Pulse Rate [Radial] Respiratory Rate 14 Blood Pressure 122/87 Blood Pressure [Right Arm] Blood Pressure Mean [Right Arm] Blood Pressure Position [Right Arm] 02 Sat by Pulse Oximetry 95 Oxygen Delivery Method Lab Data Lab Results 10/25/24 20:16: WBC 9.1, RBC 5.00, Hgb 15.6, Hct 45.0, MCV 90.0, MCH 31.2, MCHC 34.7, RDW 12.3, Plt Count 265, MPV 11.0 H, Neut % (Auto) 57.2, Lymph % (Auto) 27.5, [place] % (Auto) 13.5 H, Eos % (Auto) 0.7, Baso % (Auto) 0.4, Neut # (Auto) 5.2, Lymph # (Auto) 2.5, [place] # (Auto) 1.2 H, Eos # (Auto) 0.1, Baso # (Auto) 0.0, D-Dimer 0.47, Sodium 143, Potassium 3.8, Chloride 107, Carbon Dioxide 28, Anion Gap 11.8, BUN 11, Creatinine 0.80, Estimated Creat Clear 172, Estimated GFR 114, Est GFR ( Amer) 138, Glucose 92, Calcium 9.5, Total Bilirubin 0.8, AST 30, ALT 24, Alkaline Phosphatase 109, Troponin I < 0.01, NT-Pro-B Natriuret Pep < 20.0, Total Protein 7.3, Albumin 4.9, Globulin 2.4, Albumin/Globulin Ratio 2.0 H, Lipase 22 L Orders (Tests/Meds): ED MEDICATIONS Generic Name Dose Route Start Last Admin Trade Name Freq PRN Reason Stop Dose Admin Acetaminophen 650 mg 10/25/24 21:34 Acetaminophen 325mg Tab PO 11/24/24 21:33 Q4HP PRN Fever or Mild Pain (1-3) Hydrocodone Bitart/Acetaminophen 1 tab 10/25/24 21:34 Hydrocodone/Apap 5/325 Mg Tablet PO 11/24/24 21:33 Q4HP PRN Mild to Moderate Pain (1-6) Ibuprofen 400 mg 10/25/24 21:34 Ibuprofen 400 Mg Tablet PO 11/24/24 21:33 Q6HP PRN Mild Pain (1-3) Nicotine 21 mg 10/25/24 21:34 Nicotine 21mg/24hr Patch TD 11/24/24 21:33 DAILYP PRN Nicotine Cravings Discontinued Medications Generic Name Dose Route Start Last Admin Trade Name Freq PRN Reason Stop Dose Admin Acetaminophen 1,000 mg 10/25/24 20:22 10/25/24 20:27 Acetaminophen 500mg Tab PO 10/25/24 20:23 1,000 mg ONCE ONE Administration Ketorolac Tromethamine 15 mg 10/25/24 20:22 10/25/24 20:28 Ketorolac 30mg/Ml Vial IV 10/25/24 20:23 15 mg ONCE ONE Administration ORDERS Category Date Time Status CT chest wo con Stat Cat Scan 10/25/24 21:27 Completed Chest XR 2 view (NOT portable) [XR chest 2V] Stat Exams 10/25/24 20:22 Completed BNP [NT Pro Brain Natriuretic Pep.] Stat Lab 10/25/24 20:16 Completed CBC w/Auto Diff [Complete Blood Count Auto Diff] Stat Lab 10/25/24 20:16 Completed CMP [Comprehensive Metabolic Panel] Stat Lab 10/25/24 20:16 Completed Complete Blood Count Auto Diff AMLAB Lab 10/26/24 06:00 Ordered Comprehensive Metabolic Panel AMLAB Lab 10/26/24 06:00 Ordered D-Dimer Stat Lab 10/25/24 20:16 Completed Lipase Stat Lab 10/25/24 20:16 Completed Phosphorous AMLAB Lab 10/26/24 06:00 Ordered Trop I [Troponin I] Stat Lab 10/25/24 20:16 Completed Troponin I Q3H Lab 10/25/24 23:30 Ordered Troponin I Q3H Lab 10/26/24 02:30 Ordered ECG Data Tracing #1: I reviewed this ECG and interpreted as documented below: Normal sinus rhythm with a ventricular of [address] changes concerning for ischemia. Normal interval ECG initial impression date: 10/25/24 ECG initial impression time: 20:13 HEART Score HEART Score: 0 Medical Decision Narrative: In summary patient is a 29-year-old male who presents to the emergency department for evaluation of acute left-sided chest pain. Patient is hemodynamically stable with a blood pressure 116/52 pulse 60 respiratory rate 16 temperature is 98 satting at 98% on room air upon arrival, afebrile at 98. Physical exam is remarkable for no reproducible pain on physical exam and breath sounds are clear in the right lung boothe but diminished in the upper lung boothe on the left without adventitious sounds or increased work of breathing or accessory muscle use. Abdomen is soft nontender no rebound or guarding no rigidity. Bowel sounds normal active.. Differential diagnosis includes pneumothorax versus PE versus ACS versus pneumonia etc. Initial workup will be conducted with hematologic labs plain film chest x-ray twelve-lead EKG. Initial interventions include Tylenol Toradol Zofran. Initial workup reviewed by me and his hematologic labs are unremarkable including a normal D-dimer normal white count undetectable troponin NT proBNP in my informal interpretation of his plain film chest x-ray shows a small spontaneous pneumothorax in the left. Given this Dr. Hassan was able to place a chest tube. I then had an interactive discussion with hospital medicine regarding patient presentation SNYDER management and he will be admitted for further evaluation and care. DO Mo: I was consulted by the JULY, and we discussed the complexity of the problems being addressed. I approved the treatment and management plan for this patient's care in the emergency department, thus performing a substantive portion of the medical decision making. I independently interpreted x-ray prior to radiology read and noted pneumothorax. I independently interpreted CT scan prior to radiology read and noted that the pneumothorax is mostly anterior. Please see radiology read for final interpretation. Given 25% pneumothorax that spontaneous in nature, I explained risk versus benefit of chest tube placement to the patient and he is agreeable to chest tube placement. I had an interactive discussion with Dr. Pimentel prior to this he was in agreement with plan for anterior approach of chest tube placement. This was performed and the patient tolerated it well with no acute complications. I used a safety centesis catheter and. Vitals remained stable, I independently interpreted x-ray post chest tube placement noted satisfactory placement with resolution of his pneumothorax. Given this, I feel he stable for admission. He was admitted in stable condition. Myra Hassan DO Procedures <Myra Hassan DO - Last Filed: 10/25/24 23:16> Risk/Benefits of Procedure(s) Were Explained: Yes Chest Tube Chest Tube 1: Chest tube type: [id number] Chest Tube Location: left (Midclavicular) Chest Tube Prep: Yes sterile drapes applied Local Anesthetic: lidocaine 1% Amount of anesthesia used (mL): 7 Incision Made With: #11 blade Post Procedure: sutured to skin and sterile dressing applied Tube Drainage: none Post Procedure CXR?: Yes Patient Tolerated Procedure: Yes Progress: Tolerated well with no complication Critical Care <LINDA Concepcion - Last Filed: 10/25/24 21:24> Critical Care Time Critical Care Time: Yes Attestation: On 10/25/24, the high probability of a clinically significant, sudden or life threatening deterioration of the following system(s) required my full and direct attention, intervention and personal management. The time I documented below is in addition to time spent performing reported procedures but includes the following listed in this critical care notation. Total Time Total Critical Care Time: 30
[2024-10-25 20:35] LABS: Alanine Aminotransferase 24 U/L (12-78); Albumin Level 4.9 g/dl (3.5-5.0); Alkaline Phosphatase 109 U/L (38-126); Anion Gap 11.8 mEq/L (5-15); Aspartate Amino Transferase 30 U/L (17-59); Bilirubin,Total 0.8 mg/dl (0.2-1.3); Blood Urea Nitrogen 11 mg/dl (9-20); Calcium 9.5 mg/dl (8.4-10.2); Carbon Dioxide 28 mmol/L (22.0-30.0); Chloride 107 mmol/L (98-107); Creatinine Clearance Estimated 172 mL/min (50-200); Estimated Glomerular Filt Rate 114 ml/min (>60); GFR (African American) 138 ML/MIN (>60); Globulin 2.4 g/dL (1.3-3.2); Glucose 92 mg/dl (74-100); Lipase 22 U/L (23-300); Potassium 3.8 mmoL/L (3.5-5.1); Sodium 143 mmol/L (136-145); Total Protein,Serum 7.3 g/dl (6.3-8.2)
[2024-10-25 20:39] LABS: D-Dimer 0.47 ug/mL (0.0-0.5)
[2024-10-25 20:46] LABS: NT Pro Brain Natriuretic Pep. < 20.0 pg/mL (0-125)
[2024-10-25 20:49] LABS: Troponin I < 0.01 ng/ml (0.00-0.034)
[2024-10-25 21:00] VITALS: BP 125/80; PULSE 92; RESP 17; O2SAT 96
--- NOTE | 2024-10-25 21:10 | PC.NURSE ---
pt returns from ct radiology at this time.
--- NOTE | 2024-10-25 21:17 | PC.NURSE ---
decision to admit patient with admitting provider at the bedside.
--- NOTE | 2024-10-25 21:27 | CT_ITS ---
PROCEDURE INFORMATION: Exam: CT Chest Without Contrast; Diagnostic Exam date and time: 10/25/2024 9:42 PM Age: 29 years old Clinical indication: Pain; Radiating and left-sided; Additional info: Left-sided chest pain TECHNIQUE: Imaging protocol: Diagnostic computed tomography of the chest without contrast. Radiation optimization: All CT scans at this facility use at least one of these dose optimization techniques: automated exposure control; mA and/or kV adjustment per patient size (includes targeted exams where dose is matched to clinical indication); or iterative reconstruction. COMPARISON: CR XR CHEST 2V 10/25/2024 8:56 PM FINDINGS: Lungs: Left lower lobar compressive subsegmental atelectasis. Pleural spaces: Concentric left pneumothorax with up to 25% volume loss. No pleural effusion. Heart: Unremarkable. No cardiomegaly. No pericardial effusion. Coronary arteries: No atherosclerotic calcification of coronary arteries. Mediastinal space: No mediastinal shift. Lymph nodes: Calcified lymph nodes without lymphadenopathy. Vasculature: Unremarkable. No aortic aneurysm. Bones/joints: Unremarkable. No acute fracture. Soft tissues: Unremarkable. IMPRESSION: 1. Similar left pneumothorax with volume loss more consistent with up to 25%. No mediastinal shift. 2. Left lower lobar compressive subsegmental atelectasis.
[2024-10-25 21:30] VITALS: BP 133/91; PULSE 91; RESP 12; O2SAT 97
--- NOTE | 2024-10-25 21:37 | EXP.HP ---
History of Present Illness *Admission Date: 10/25/24 *Reason for visit:: Chest pain *History of present illness: 29-year-old male comes in the emergency department for evaluation of chest pain. Been present for 1 to 2 days and associated with coughing. Located on the left side. Radiating from shoulder to abdomensudden onset last night of left-sided chest pain as he was sitting down to play video games. Pain has persisted since last night waking him up every hour as he tried to sleep. He states the pain radiates to his left shoulder and down his left arm. He has no known cardiovascular history is on no home medications and no chronic medical conditions. He does vape daily. He denies fever chills hemoptysis hematochezia melena nausea vomiting diarrhea. Chest x-ray demonstrates small left apical pneumothorax. CT scan ordered with L pneumo and posterior atelectasis . ER to place chest tube. Hospitalist consulted for admission Reports a history of vaping consistently. No alcohol or drug use. No other medical problems. No medications. Family history significant for multiple cancers in grandparents. History independently obtained. Diagnostics and laboratory findings independently reviewed. Discussion with multiple providers occurred. Prior medical records reviewed. [facility] Disclaimer: The information contained in this section may have been updated after the patient was seen, as this information can be updated by other users. Social History Smoking Status: Current every day smoker tobacco type: e-cigarettes alcohol intake: never current occupational status: employed Travel in the last 8 weeks?: None Have you lived/traveled outside US in past 30 days?: No Contact w/someone who lives/traveled outside US past 30 days?: No Exposure to someone with infectious disease in past 14 days?: No Do you have a fever (greater than 100.4 F or 38 C)?: No Have you tested positive for COVID-19?: No Exposed to someone with COVID-19 in past 14 days?: No Do you have a sore throat?: No Do you have a cough?: No Do you have any weakness?: No Do you have any diarrhea?: No Are you experiencing any unusual bleeding?: No Do you have any muscle aches/pain?: No Do you have any abdominal pain?: No Are you experiencing loss of taste or smell?: No Other Medical History Have you received the Flu Vaccine for this season: No Have you received the Pneumonia Vaccine: No Review of Systems Review of Systems Review of systems:: pertinent systems reviewed and negative unless documented below Constitutional Constitutional: Denies body ache(s) and Denies chills Eyes Eyes: Denies blind spots and Denies blurry vision *Cardiovascular Cardiovascular: Reports chest pain, Denies chest pain with activity and Reports dyspnea *Respiratory Respiratory: Reports cough, Reports dyspnea, Denies hemoptysis and Reports pain on inspiration Meds Home Medications and Allergies Home Medications ?Medication ?Instructions ?Recorded ?Confirmed ?Type amoxicillin 875 mg-potassium 1 tab PO Q12H 10 days #20 tabs 02/25/21 Rx clavulanate 125 mg tablet lgfyaxwfpndbbvq-rpxrfdxowjxdley-RV 5 ml PO Q6HP PRN Cough #240 mL 02/25/21 Rx 2 mg-30 mg-10 mg/5 mL oral syrup prednisone 10 mg tablet 10 mg PO BID 3 days #6 tabs 02/25/21 Rx albuterol sulfate 90 mcg/actuation 2 puffs IH Q6HP PRN Shortness Of 03/10/21 Rx aerosol inhaler Breath 30 days #1 ea dexamethasone 6 mg tablet 6 mg PO DAILY 6 days #6 tabs 03/10/21 Rx New Prescriptions to Start Prescriptions: Allergies Allergy/AdvReac Type Severity Reaction Status Date / Time cimetidine (CIMETIDINE) Allergy Intermediate Verified 11/04/20 17:04 Exam Data for Last 24 hours Vital signs and Labs for Last 24 Hours: Temp Pulse Resp BP Pulse Ox O2 Del Method 98 F 60 16 116/52 L 98 Room Air 10/25/24 20:16 10/25/24 20:16 10/25/24 20:16 10/25/24 20:16 10/25/24 20:16 10/25/24 20:16 Laboratory Results - last 24 hr 10/25/24 20:16: WBC 9.1, RBC 5.00, Hgb 15.6, Hct 45.0, MCV 90.0, MCH 31.2, MCHC 34.7, RDW 12.3, Plt Count 265, MPV 11.0 H, Neut % (Auto) 57.2, Lymph % (Auto) 27.5, [place] % (Auto) 13.5 H, Eos % (Auto) 0.7, Baso % (Auto) 0.4, Neut # (Auto) 5.2, Lymph # (Auto) 2.5, [place] # (Auto) 1.2 H, Eos # (Auto) 0.1, Baso # (Auto) 0.0, D-Dimer 0.47, Sodium 143, Potassium 3.8, Chloride 107, Carbon Dioxide 28, Anion Gap 11.8, BUN 11, Creatinine 0.80, Estimated Creat Clear 172, Estimated GFR 114, Est GFR ( Amer) 138, Glucose 92, Calcium 9.5, Total Bilirubin 0.8, AST 30, ALT 24, Alkaline Phosphatase 109, Troponin I < 0.01, NT-Pro-B Natriuret Pep < 20.0, Total Protein 7.3, Albumin 4.9, Globulin 2.4, Albumin/Globulin Ratio 2.0 H, Lipase 22 L I & O for Last 24 hours: Intake & Output 10/22/24 10/23/24 10/24/24 10/25/24 23:59 23:59 23:59 23:59 Weight 89.358 kg Constitutional Constitutional: no acute distress and cooperative *Routine HEENT Exam Head: Present normocephalic Eye: Present EOMI ENT: Present mucous membranes moist *Routine Neck Exam Neck: Present supple and full ROM; Absent JVD *Routine Respiratory Exam Respiratory: Present distant breath sounds; Absent accessory muscle use or rales *Routine Cardiovascular Exam Cardiovascular: Present RRR, Normal S1 and Normal S2 *Routine Abdominal Exam Abdominal: Present soft; Absent distended *Routine Rectal Exam Rectal:: deferred *Routine Genitalia Exam Genitalia:: deferred *Routine Extremities Exam Extremities: Absent tenderness *Routine Skin Exam Comments: No subcutaneous crepitus *Routine Neurological Exam Neurological: Present alert and oriented X3 Assessment and Plan *Assessment and plan (1) Pneumothorax: Status: Acute Category: Medical Code(s): J93.9 - Pneumothorax, unspecified (2) Nicotine use: Status: Acute Category: Medical Code(s): Z72.0 - Tobacco use Plan 29-year-old man admitted with symptomatic left sided apical pneumothorax, likely vaping related. CT Noncon ordered to rule out other secondary etiologies and negative. Chest tube placed by ER physician, will admit for monitoring of pneumothorax resolution vaping associated pneumothorax - Chest tube placed by ER - Daily chest x-ray - Incentive spirometer - Remove tube when able - Symptomatic management - pulm consulted Nicotine use disorder - Counseled on nicotine cessation
[2024-10-25 21:48] VITALS: BP 122/87; PULSE 85; RESP 14; O2SAT 95
--- NOTE | 2024-10-25 21:48 | PC.NURSE ---
pt is back from ct and hooked back up to vitals at this time
[2024-10-25] MEDS: ONDANSETRON 4MG/2ML VIAL 4 MG IV (22:38)
[2024-10-25] MEDS: MORPHINE 4MG/ML SYRINGE 4 MG IV (22:38)
--- NOTE | 2024-10-25 22:44 | XR_ITS ---
PROCEDURE INFORMATION: Exam: XR Chest Exam date and time: 10/25/2024 10:45 PM Age: 29 years old Clinical indication: Device placement; Chest tube; Additional info: Chest tube placement TECHNIQUE: Imaging protocol: Radiologic exam of the chest. Views: 1 view. COMPARISON: CT CHEST WO CON 10/25/2024 9:42 PM FINDINGS: Tubes, catheters and devices: Left pigtail pleural catheter coiled in left upper peripheral pleural cavity. Lungs: Unremarkable. No consolidation. Pleural spaces: No pleural effusion. No pneumothorax. Heart/Mediastinum: Unremarkable. No cardiomegaly. Bones/joints: Unremarkable. IMPRESSION: Status post placement of left pigtail pleural catheter without obvious pneumothorax identified.
--- NOTE | 2024-10-25 23:14 | PC.NURSE ---
Report given to Lorena ODOM on the floor.
--- NOTE | 2024-10-25 23:14 | PC.NURSE ---
Late Entry: 2225- consent obtained signed and witnessed with patient, Dr Hassan and this RN 2235- set for pig tail chest tube, time out complete. correct patient correct spot and correct procedure 223- pig tail inserted, pt tolerates well. NAD noted 8ft pigtail
[2024-10-25 23:15] VITALS: BP 130/82; PULSE 76; RESP 16; TEMP 36.6; O2SAT 100
[2024-10-25 23:36] VITALS: BP 125/86; PULSE 70; RESP 11; TEMP 36.3; O2SAT 96
[2024-10-25 23:44] VITALS: BMI 23.6
[2024-10-26 00:31] LABS: Troponin I < 0.01 ng/ml (0.00-0.034)
[2024-10-26 03:09] LABS: Troponin I < 0.01 ng/ml (0.00-0.034)
[2024-10-26 04:00] VITALS: BP 126/71; PULSE 64; RESP 18; TEMP 36.8; O2SAT 97
[2024-10-26 05:54] LABS: Albumin Level 4.3 g/dl (3.5-5.0); Chloride 108 mmol/L (98-107)
[2024-10-26 05:55] LABS: Sodium 142 mmol/L (136-145)
[2024-10-26 05:57] LABS: Alanine Aminotransferase 22 U/L (12-78); Albumin/Globulin Ratio 1.8 (1.1-1.8); Alkaline Phosphatase 85 U/L (38-126); Aspartate Amino Transferase 30 U/L (17-59); Bilirubin,Total 0.6 mg/dl (0.2-1.3); Blood Urea Nitrogen 12 mg/dl (9-20); Carbon Dioxide 29 mmol/L (22.0-30.0); Creatinine Clearance Estimated 136 mL/min (50-200); Estimated Glomerular Filt Rate 100 ml/min (>60); GFR (African American) 121 ML/MIN (>60); Globulin 2.4 g/dL (1.3-3.2); Total Protein,Serum 6.7 g/dl (6.3-8.2)
[2024-10-26 05:58] LABS: Basophils % 0.2 % (0.1-2.0); Eosinophils # 0.1 Kmm3 (0.0-0.4); Eosinophils % 1.5 % (0.1-12.0); Glucose 83 mg/dl (74-100); Immature Granulocytes # 0.03 10^3uL; Immature Granulocytes % 0.5 %; Lymphocytes # 1.9 K/mm3 (0.7-4.5); Lymphocytes % 30.9 % (10-50); Mean Corpuscular HGB Conc 33.3 g/dL (31.8-35.4); Mean Corpuscular Hemoglobin 30.6 pg (27.0-31.2); Mean Corpuscular Volume 91.7 fl (80-94); Mean Platelet Volume 11.1 fl (7.4-10.4); Monocytes # 0.9 K/mm3 (0.1-1.0); Neutrophils # 3.1 K/mm3 (1.8-7.8); Neutrophils % 51.9 % (37.0-80.0); Nucleated Red Blood Cells # 0 10^3/uL; Nucleated Red Blood Cells % 0 %; Phosphorous 4.9 mg/dl (2.5-4.5); Platelet Count 229 K/mm3 (142-424); Red Blood Count 4.58 M/mm3 (4.60-6.20); Red Cell Distribution Width 12.4 % (11.5-17.5); Red Cell Distribution Width-SD 41.1 fL; White Blood Count 6.1 K/mm3 (4.8-10.8)
--- NOTE | 2024-10-26 06:00 | XR_ITS ---
PROCEDURE INFORMATION: Exam: XR Chest Exam date and time: 10/26/2024 5:56 AM Age: 29 years old Clinical indication: Condition or disease; Other: Pneumothorax TECHNIQUE: Imaging protocol: Radiologic exam of the chest. Views: 1 view. COMPARISON: CR XR CHEST PORTABLE 10/25/2024 10:45 PM FINDINGS: Tubes, catheters and devices: Similar appearance of the small caliber left-sided chest tube which has a somewhat coiled appearance superolaterally. Lungs: Stable left basilar subsegmental atelectasis. Left upper lobe granuloma. Pleural spaces: No significant pleural effusion or visible pneumothorax. Heart/Mediastinum: Unremarkable. No cardiomegaly. Bones/joints: Unremarkable. IMPRESSION: Stable small caliber left-sided chest tube. No visible pneumothorax.
[2024-10-26 06:06] LABS: Hemoglobin 14.2 g/dL (14.1-18.0)
--- NOTE | 2024-10-26 06:25 | PC.NURSE ---
patient new admit this shift, alert and oriented x4, chest tube noted to left anterior chest, no complaints of pain since admission, lung sounds clear, educated patient on use of incentive spirometer, call button is in reach
[2024-10-26 07:37] VITALS: BP 162/96; PULSE 78; RESP 18; TEMP 36.9; O2SAT 96
--- NOTE | 2024-10-26 09:59 | EXP.PULM.CON ---
History of Present Illness History of present illness: Mr. Claros is a 29-year-old male around [id number] smoking history currently vaping presented to the ER with nonspecific left-sided chest pain found to be having pneumothorax and pulmonary was called for further evaluation and management. Patient admits sick contacts, his kids, has been coughing with productive phlegm for the last couple of days. Admits sudden onset left-sided chest pain Friday around 11 PM with no worsening but not resolving and presented to the ER Friday. [facility] Disclaimer: The information contained in this section may have been updated after the patient was seen, as this information can be updated by other users. Medical History (Updated 10/26/24 @ 13:12 by Maxime Pimentel MD) Pneumonia Surgical History (Updated 10/25/24 @ 23:42 by Iraida Azar RN) History of tonsillectomy Family History (Updated 10/25/24 @ 23:42 by Iraida Azar RN) Other Family history of cancer Social History (Updated 10/25/24 @ 23:42 by Iraida Azar RN) Smoking Status: Current every day smoker tobacco type: e-cigarettes alcohol intake: never current occupational status: employed Travel in the last 8 weeks?: None Have you lived/traveled outside US in past 30 days?: No Contact w/someone who lives/traveled outside US past 30 days?: No Exposure to someone with infectious disease in past 14 days?: No Do you have a fever (greater than 100.4 F or 38 C)?: No Have you tested positive for COVID-19?: No Exposed to someone with COVID-19 in past 14 days?: No Do you have a sore throat?: No Do you have a cough?: No Do you have any weakness?: No Are you experiencing any nausea/vomitting?: No Do you have any diarrhea?: No Are you experiencing any unusual bleeding?: No Do you have any muscle aches/pain?: No Do you have any abdominal pain?: No Are you experiencing loss of taste or smell?: No Review of Systems Constitutional Constitutional: Denies anorexia, Denies body ache(s) and Denies fatigue Eyes Eyes: Denies eye discharge, Denies dry eyes, Denies irritation and Denies itchy eyes ENT Ears, Nose, Mouth, and Throat: Denies epistaxis, Denies facial pain, Denies lip swelling and Denies throat swelling *Cardiovascular Cardiovascular: Reports chest pain, Denies dyspnea and Denies dyspnea on exertion *Respiratory Respiratory: Denies change in phlegm color, Reports chest congestion, Reports cough, Denies dyspnea, Denies dyspnea on exertion, Reports excessive phlegm production and Denies wheezing *Gastrointestinal Gastrointestinal: Denies abdominal pain, Denies belching and Denies cramping *Musculoskeletal Musculoskeletal: Denies back pain and Denies myalgias Psychiatric Psychiatric: Denies homicidal ideation and Denies suicidal ideation Endocrine Endocrine: Denies fatigue and Denies heat intolerance Hematologic/Lymphatic Hematologic/Lymphatic: Denies easy bleeding and Denies lymphadenopathy Allergic/Immunologic Allergic/Immunologic: Denies itchy eyes, Denies lip swelling, Denies throat swelling and Denies wheezing Pulmonology Exam Inpatient Vital signs and Labs for Last 24 Hours: Temp Pulse Resp BP Pulse Ox O2 Del Method 98.5 F 78 18 162/96 H 96 Room Air 10/26/24 07:37 10/26/24 07:37 10/26/24 07:37 10/26/24 07:37 10/26/24 07:37 10/26/24 09:00 Laboratory Results - last 24 hr 10/25/24 20:16: WBC 9.1, RBC 5.00, Hgb 15.6, Hct 45.0, MCV 90.0, MCH 31.2, MCHC 34.7, RDW 12.3, Plt Count 265, MPV 11.0 H, Neut % (Auto) 57.2, Lymph % (Auto) 27.5, [place] % (Auto) 13.5 H, Eos % (Auto) 0.7, Baso % (Auto) 0.4, Neut # (Auto) 5.2, Lymph # (Auto) 2.5, [place] # (Auto) 1.2 H, Eos # (Auto) 0.1, Baso # (Auto) 0.0, D-Dimer 0.47, Sodium 143, Potassium 3.8, Chloride 107, Carbon Dioxide 28, Anion Gap 11.8, BUN 11, Creatinine 0.80, Estimated Creat Clear 172, Estimated GFR 114, Est GFR ( Amer) 138, Glucose 92, Calcium 9.5, Total Bilirubin 0.8, AST 30, ALT 24, Alkaline Phosphatase 109, Troponin I < 0.01, NT-Pro-B Natriuret Pep < 20.0, Total Protein 7.3, Albumin 4.9, Globulin 2.4, Albumin/Globulin Ratio 2.0 H, Lipase 22 L 10/25/24 23:48: Troponin I < 0.01 10/26/24 02:40: Troponin I < 0.01 10/26/24 05:13: WBC 6.1 D, RBC 4.58 L, Hgb 14.2, Hct 42.0, MCV 91.7, MCH 30.6, MCHC 33.3, RDW 12.4, Plt Count 229, MPV 11.1 H, Neut % (Auto) 51.9, Lymph % (Auto) 30.9, [place] % (Auto) 15.0 H, Eos % (Auto) 1.5, Baso % (Auto) 0.2, Neut # (Auto) 3.1, Lymph # (Auto) 1.9, [place] # (Auto) 0.9, Eos # (Auto) 0.1, Baso # (Auto) 0.0, Sodium 142, Potassium 4.0, Chloride 108 H, Carbon Dioxide 29, Anion Gap 9.0, BUN 12, Creatinine 0.90, Estimated Creat Clear 136, Estimated GFR 100, Est GFR ( Amer) 121, Glucose 83, Calcium 9.0, Phosphorus 4.9 H, Total Bilirubin 0.6, AST 30, ALT 22, Alkaline Phosphatase 85, Total Protein 6.7, Albumin 4.3 D, Globulin 2.4, Albumin/Globulin Ratio 1.8 I & O for Labs for Last 24 Hours: Intake & Output 10/23/24 10/24/24 10/25/24 10/26/24 23:59 23:59 23:59 23:59 Intake Total 600 / 600 Output Total 0 / 0 Balance 600 / 600 Weight 174 lb 14.4 oz Constitutional: Present no acute distress Head: Present normocephalic and atraumatic ENT: Present normal exam, normal oropharynx and mucous membranes moist Neck: Present normal inspection and full ROM Respiratory: Present normal respiratory effort and able to speak in complete sentences; Absent prolonged expiratory phase, respiratory distress, rhonchi, wheezes, crackles or diminished air movement Cardiac: Present S1/S2, Tachycardia and radial pulses present GI: Present soft and distention; Absent tenderness or guarding Skin: Present intact; Absent cyanosis or jaundice Neuro: Present alert, awake and oriented x 3 Extremities: Present normal inspection; Absent clubbing or cyanosis Psychiatric: Present normal affect and cooperative Meds Home Medications and Allergies Home Medications ?Medication ?Instructions ?Recorded ?Confirmed ?Type No Known Home Medications 10/26/24 10/26/24 History New Prescriptions to Start Prescriptions: Allergies Allergy/AdvReac Type Severity Reaction Status Date / Time cimetidine (CIMETIDINE) Allergy Intermediate Verified 11/04/20 17:04 Results Laboratory Findings 10/26/24 05:13 10/26/24 05:13 PT/INR, D-dimer D-Dimer 0.47 ug/mL (0.0-0.5) 10/25/24 20:16 Abnormal lab findings: Abnormal Labs 10/25/24 10/26/24 20:16 05:13 RBC 4.58 L MPV 11.0 H 11.1 H Henderson % (Auto) 13.5 H 15.0 H Henderson # (Auto) 1.2 H Chloride 108 H Phosphorus 4.9 H Albumin/Globulin Ratio 2.0 H Lipase 22 L Assessment and Plan *Assessment and plan (1) Spontaneous pneumothorax: Status: Acute Category: Medical Code(s): J93.83 - Other pneumothorax (2) Pneumonia: Status: Acute Category: Medical Code(s): J18.9 - Pneumonia, unspecified organism Plan Mr. Claros is a 29-year-old male around [id number] smoking history currently vaping presented to the ER with nonspecific left-sided chest pain found to be having pneumothorax and pulmonary was called for further evaluation and management. Patient admits sick contacts, his kids, has been coughing with productive phlegm for the last couple of days. Admits sudden onset left-sided chest pain Friday around 11 PM with no worsening but not resolving and presented to the ER Friday. Chest x-ray upon admission left sided pneumothorax. CT chest with left predominantly anterior and posterior sulcus pneumothorax. Left lower lobe airspace disease noted. No other obvious pulmonary parenchymal changes noted contributing to his current pneumothorax.. Status post pigtail catheter placement with complete resolution of the concerning pneumothorax. No respiratory distress. Chest clear to auscultate. Plan: Clamp the chest tube, follow with repeat chest x-ray in 4 hours Initiate cefdinir 300 mg twice daily to complete a total of 5-day course for the noted left lower lobe airspace disease
[2024-10-26 12:00] VITALS: BP 152/85; PULSE 87; RESP 16; TEMP 36.9; O2SAT 98
--- NOTE | 2024-10-26 14:14 | XR_ITS ---
FINAL REPORT CLINICAL HISTORY: Pneumothorax, left sided chest tube COMPARISON: 10/26/2024 FINDINGS: SINGLE VIEW CHEST The heart is normal in size. The mediastinum is unremarkable. The lungs are clear. There is a small bore left chest tube in the periphery of the left hemithorax. There is no pneumothorax. IMPRESSION: No acute process. Reviewed, Interpreted and Dictated by Emiliano Noland MD Transcribed by Magali Urbano Authenticated and [facility]
[2024-10-26] MEDS: CEFDINIR 300MG CAPSULE 300 MG PO (14:18)
--- NOTE | 2024-10-26 15:46 | EXP.DC.SUM ---
General Admission date:: 10/25/24 Discharge date: 10/26/24 HPI HPI HPI: 29-year-old male comes in the emergency department for evaluation of chest pain. Been present for 1 to 2 days and associated with coughing. Located on the left side. Radiating from shoulder to abdomensudden onset last night of left-sided chest pain as he was sitting down to play video games. Pain has persisted since last night waking him up every hour as he tried to sleep. He states the pain radiates to his left shoulder and down his left arm. He has no known cardiovascular history is on no home medications and no chronic medical conditions. He does vape daily. He denies fever chills hemoptysis hematochezia melena nausea vomiting diarrhea. Chest x-ray demonstrates small left apical pneumothorax. CT scan ordered with L pneumo and posterior atelectasis . ER to place chest tube. Hospitalist consulted for admission Reports a history of vaping consistently. No alcohol or drug use. No other medical problems. No medications. Family history significant for multiple cancers in grandparents. History independently obtained. Diagnostics and laboratory findings independently reviewed. Discussion with multiple providers occurred. Prior medical records reviewed. Hospital Course Hospital Course Hospital Course: 29-year-old man admitted with symptomatic left sided apical pneumothorax, likely vaping related. CT Noncon ordered to rule out other secondary etiologies and negative. Chest tube placed by ER physician. Admitted for monitoring overnight. Pulmonology consulted to evaluate. Appreciate their assistance in care. Pneumothorax resolved and chest tube able to be removed. Stable to discharge home with close follow-up as an outpatient. Problems addressed as follows: vaping associated pneumothorax Suspected left lower lobe pneumonia - Chest tube placed by ER and left second intercostal space. Small to moderate left upper pneumothorax. Improved to the evacuation. Able to clamp tube with resolution and no recurrence after at least 8 hours. Chest tube removed and patient deemed stable discharge home. Patient does appear to have left lower lobe airspace disease on CT chest. Initiated on cefdinir 300 mg twice daily to complete 5 days of antibiotics. Will plan for follow-up with pulmonology as an outpatient. Nicotine use disorder: Counseled on nicotine cessation especially cessation of vaping. Patient interested in quitting. Total time spent on discharge 38 minutes in counseling, documentation, chart review, and direct care with patient. Exam Data for Last 24 hours Vital signs and Labs for Last 24 Hours: Temp Pulse Resp BP Pulse Ox O2 Del Method 98.4 F 87 16 152/85 H 98 Room Air 10/26/24 12:00 10/26/24 12:00 10/26/24 12:00 10/26/24 12:00 10/26/24 12:00 10/26/24 14:42 Laboratory Results - last 24 hr 10/25/24 20:16: WBC 9.1, RBC 5.00, Hgb 15.6, Hct 45.0, MCV 90.0, MCH 31.2, MCHC 34.7, RDW 12.3, Plt Count 265, MPV 11.0 H, Neut % (Auto) 57.2, Lymph % (Auto) 27.5, [place] % (Auto) 13.5 H, Eos % (Auto) 0.7, Baso % (Auto) 0.4, Neut # (Auto) 5.2, Lymph # (Auto) 2.5, [place] # (Auto) 1.2 H, Eos # (Auto) 0.1, Baso # (Auto) 0.0, D-Dimer 0.47, Sodium 143, Potassium 3.8, Chloride 107, Carbon Dioxide 28, Anion Gap 11.8, BUN 11, Creatinine 0.80, Estimated Creat Clear 172, Estimated GFR 114, Est GFR ( Amer) 138, Glucose 92, Calcium 9.5, Total Bilirubin 0.8, AST 30, ALT 24, Alkaline Phosphatase 109, Troponin I < 0.01, NT-Pro-B Natriuret Pep < 20.0, Total Protein 7.3, Albumin 4.9, Globulin 2.4, Albumin/Globulin Ratio 2.0 H, Lipase 22 L 10/25/24 23:48: Troponin I < 0.01 10/26/24 02:40: Troponin I < 0.01 10/26/24 05:13: WBC 6.1 D, RBC 4.58 L, Hgb 14.2, Hct 42.0, MCV 91.7, MCH 30.6, MCHC 33.3, RDW 12.4, Plt Count 229, MPV 11.1 H, Neut % (Auto) 51.9, Lymph % (Auto) 30.9, [place] % (Auto) 15.0 H, Eos % (Auto) 1.5, Baso % (Auto) 0.2, Neut # (Auto) 3.1, Lymph # (Auto) 1.9, [place] # (Auto) 0.9, Eos # (Auto) 0.1, Baso # (Auto) 0.0, Sodium 142, Potassium 4.0, Chloride 108 H, Carbon Dioxide 29, Anion Gap 9.0, BUN 12, Creatinine 0.90, Estimated Creat Clear 136, Estimated GFR 100, Est GFR ( Amer) 121, Glucose 83, Calcium 9.0, Phosphorus 4.9 H, Total Bilirubin 0.6, AST 30, ALT 22, Alkaline Phosphatase 85, Total Protein 6.7, Albumin 4.3 D, Globulin 2.4, Albumin/Globulin Ratio 1.8 I & O for Last 24 hours: Intake & Output 10/23/24 10/24/24 10/25/24 10/26/24 23:59 23:59 23:59 23:59 Intake Total 870 / 870 Balance 870 / 870 Weight 79.333 kg Constitutional Constitutional: no acute distress and cooperative *Routine HEENT Exam Head: Present normocephalic Eye: Present EOMI and PERRL ENT: Present mucous membranes moist *Routine Neck Exam Neck: Present supple; Absent lymphadenopathy Routine Chest/Breast/Axilla Exam Comments: Pigtail in left upper chest in between second intercostal space on initial exam in the morning. Bandage in place after fall prior to discharge *Routine Respiratory Exam Respiratory: Present CTA bilaterally; Absent rhonchi, wheezes or crackles *Routine Cardiovascular Exam Cardiovascular: Present RRR *Routine Abdominal Exam Abdominal: Present soft and normoactive bowel sounds; Absent tenderness *Routine Rectal Exam Patient deferred: visual exam *Routine Exam Patient deferred: penile exam *Routine Extremities Exam Extremities: Absent cyanosis, clubbing or edema *Routine Skin Exam Skin: Present intact and warm; Absent rash *Routine Neurological Exam Neurological: Present alert, oriented X3 and moving all extremities; Absent altered mental status Results Data Completed and Pending Labs on day of discharge: Labs from last 24 hours 10/26/24 10/26/24 10/25/24 05:13 02:40 23:48 WBC 6.1 D RBC 4.58 L Hgb 14.2 Hct 42.0 MCV 91.7 MCH 30.6 MCHC 33.3 RDW 12.4 Plt Count 229 MPV 11.1 H Neut % (Auto) 51.9 Lymph % (Auto) 30.9 [place] % (Auto) 15.0 H Eos % (Auto) 1.5 Baso % (Auto) 0.2 Neut # (Auto) 3.1 Lymph # (Auto) 1.9 [place] # (Auto) 0.9 Eos # (Auto) 0.1 Baso # (Auto) 0.0 D-Dimer Sodium 142 Potassium 4.0 Chloride 108 H Carbon Dioxide 29 Anion Gap 9.0 BUN 12 Creatinine 0.90 Estimated Creat Clear 136 Estimated GFR 100 Est GFR ( Amer) 121 Glucose 83 Calcium 9.0 Phosphorus 4.9 H Total Bilirubin 0.6 AST 30 ALT 22 Alkaline Phosphatase 85 Troponin I < 0.01 < 0.01 NT-Pro-B Natriuret Pep Total Protein 6.7 Albumin 4.3 D Globulin 2.4 Albumin/Globulin Ratio 1.8 Lipase 10/25/24 20:16 WBC 9.1 RBC 5.00 Hgb 15.6 Hct 45.0 MCV 90.0 MCH 31.2 MCHC 34.7 RDW 12.3 Plt Count 265 MPV 11.0 H Neut % (Auto) 57.2 Lymph % (Auto) 27.5 [place] % (Auto) 13.5 H Eos % (Auto) 0.7 Baso % (Auto) 0.4 Neut # (Auto) 5.2 Lymph # (Auto) 2.5 [place] # (Auto) 1.2 H Eos # (Auto) 0.1 Baso # (Auto) 0.0 D-Dimer 0.47 Sodium 143 Potassium 3.8 Chloride 107 Carbon Dioxide 28 Anion Gap 11.8 BUN 11 Creatinine 0.80 Estimated Creat Clear 172 Estimated GFR 114 Est GFR ( Amer) 138 Glucose 92 Calcium 9.5 Phosphorus Total Bilirubin 0.8 AST 30 ALT 24 Alkaline Phosphatase 109 Troponin I < 0.01 NT-Pro-B Natriuret Pep < 20.0 Total Protein 7.3 Albumin 4.9 Globulin 2.4 Albumin/Globulin Ratio 2.0 H Lipase 22 L DS: Diagnosis Discharge Diagnosis (1) Spontaneous pneumothorax: Status: Acute Code(s): J93.83 - Other pneumothorax (2) Pneumonia: Status: Acute Code(s): J18.9 - Pneumonia, unspecified organism Meds Home Medications and Allergies Home Medications ?Medication ?Instructions ?Recorded ?Confirmed ?Type cefdinir 300 mg capsule 300 mg PO BID 5 days #10 caps 10/26/24 Rx New Prescriptions to Start Prescriptions: cefdinir Víctor Duff Allergies Allergy/AdvReac Type Severity Reaction Status Date / Time cimetidine (CIMETIDINE) Allergy Intermediate Verified 11/04/20 17:04 Discharge Plan Disposition Patient Disposition: Home, Self-Care Condition: Good Discharge Order Discharge Orders: Discharge Order (Routine); Ordered 10/26/24 Ordered By: Víctor Duff Follow up Plan Follow up with: Maxime Pimentel MD [Physician] - 10/29/24 10:00 am (please have chest x-ray prior to appointment) Kelly Munroe APRN [Nurse Practitioner] - 11/04/24 3:00 pm Prescriptions/Medication Reconciliation: New cefdinir 300 mg Capsule 300 mg PO BID 5 Days Qty: 10 0RF Problem Reconciliation Problems Reviewed?: Yes Patient Discharge Instructions ACTIVITY: Continue current activity DIET: continue same diet Patient Instructions: Pneumothorax Print Language: Moroccan Providers Primary Care Provider: Provider,Referral Admit Provider: Jefry Kamara Attending Provider: Jefry Kamara
--- NOTE | 2024-10-27 10:01 | SW/DCPLANNER ---
Spoke with patient on the phone. Patient stated that he is doing good. Patient stated that he is aware of his upcoming appointments. Patient stated that he was able to get his new medicine picked up from [facility]. Patient stated that he has no concerns or questions at this time. Camille Mancilla
== END 2024-10-26 16:37 | disposition home or self-care (01) | DRG 205 ==
LOC: ER 21:24 → 2ND 10-26 05:32
PROVIDERS: Physician Assistant; Student in an Organized Health Care Education/Training Program; Admitting Provider Student in an Organized Health Care Education/Training Program; Emergency Provider Emergency Medicine; Visit Provider Student in an Organized Health Care Education/Training Program
DX: U07.0 Vaping-related disorder (principal); J18.9 Pneumonia, unspecified organism; J93.83 Other pneumothorax; Z71.6 Tobacco abuse counseling; F17.299 Nicotine dependence, other tobacco product, with unspecified nicotine-induced disorders
CPT/HCPCS: 32551; 36415; 71045; 71046; 71250; 80053; 83690; 83880; 84100; 84484; 85025; 85378; 93005; 99291; J1885; J2270; J2405

== ENCOUNTER 2024-10-29 08:44 | Outpatient (CLI) | payer BC, SELFPAY ==
--- NOTE | 2024-10-29 08:50 | XR_ITS ---
FINAL REPORT TECHNIQUE: Chest PA & Lateral CLINICAL HISTORY: Pneumothorax follow-up COMPARISON: 10/25/2024 CT scan and 10/26/2024 chest x-ray FINDINGS: 2 views of the chest were performed. The heart size is normal. The mediastinum is within normal limits. There is no acute cardiopulmonary process. There are no pleural effusions. There is no pneumothorax. The bony thorax appears intact. IMPRESSION: No acute cardiopulmonary process. No evidence of pneumothorax. Reviewed, Interpreted and Dictated by Emiliano Noland MD Transcribed by Ct Cast Authenticated and [facility]
== END 2024-10-29 23:59 | disposition home or self-care (01) ==
LOC: RAD 08:46
PROVIDERS: PCP Nurse Practitioner Family; Visit Provider Internal Medicine Pulmonary Disease
DX: J93.9 Pneumothorax, unspecified (principal)
CPT/HCPCS: 71046

== ENCOUNTER 2024-12-31 00:39 | Outpatient (REF) | payer SELFPAY ==
--- NOTE | 2024-12-31 | XR_ITS ---
FINAL REPORT CLINICAL HISTORY: [employer] employee, no symptoms COMPARISON: 10/29/2024 FINDINGS: A portable view of the chest was obtained. Cardiac and mediastinal silhouettes are within normal limits. There is evidence of granulomatous disease. The lungs are otherwise clear. There is no pleural effusion or pneumothorax. IMPRESSION: No acute process on this portable exam. Reviewed, Interpreted and Dictated by Johanna Dial MD Transcribed by Ct Cast Authenticated and [facility]
== END 2024-12-31 23:59 | disposition home or self-care (01) ==
LOC: RAD 00:39
CPT/HCPCS: 71045